=== PATIENT | female | born 1995 ===

== ENCOUNTER 2017-11-14 03:53 | Emergency (ER) | payer SELFPAY ==
[2017-11-14 03:55] VITALS: BP 145/99
[2017-11-14] MEDS ORDERED: DIPHTH/TETANUS/ACEL. PERTUSSIS IM ONLY ONE (03:55)
--- NOTE | 2017-11-14 03:58 | ER Report ---
History and Physical Time Seen By MD: 03:54 HPI/ROS CHIEF COMPLAINT: Snf clearance HISTORY OF PRESENT ILLNESS: 22-year-old female brought in by police for senior care clearance. She denies injury or medical problems. On visual examination, there is an abrasion to her central upper lip and a small superficial abrasion to her chin. Patient denies head injury or neck pain. Patient's last tetanus shots greater than 10 years. REVIEW OF SYSTEMS: Respiratory: No cough, no dyspnea. Cardiovascular: No chest pain, no palpitations. Gastrointestinal: No vomiting, no abdominal pain. Musculoskeletal: No back pain. Allergies: Coded Allergies: No Known Drug Allergies (Unverified , 11/14/17) Reviewed Nurses Notes: Yes Old Medical Records Reviewed: Yes Constitutional Vital Sign - Last 24 Hours 11/14/17 03:55 Temp 98.4 Pulse 99 Resp 20 B/P (MAP) 145/99 Pulse Ox 95 O2 Delivery Room Air Physical Exam General Appearance: The patient is alert, has no immediate need for airway protection and no current signs of toxicity.. Palpation of the head and neck reveal no tenderness or trauma HEENT: Pupils equal and round no injection. Ears normal, oropharynx without redness or exudate, no dental trauma noted. There is a small superficial abrasion to the central portion of the upper lip and there is a very faint subtle laceration to the chin Respiratory: Chest is non tender, lungs are clear to auscultation. Cardiac: regular rate and rhythm Gastrointestinal: Abdomen is soft and non tender, no masses, bowel sounds normal. Musculoskeletal: Neck: Neck is supple and non tender. Extremities have full range of motion and are non tender. No evidence of trauma Skin: No rashes or lesions. DIFFERENTIAL DIAGNOSIS: After history and physical exam differential diagnosis was considered for senior care clearance, alcohol intoxication, polysubstance abuse Medical Decision Making ED Course/Re-evaluation ED Course Patient was minute to an examination room. H&P was done. The differential diagnoses was considered. On conical examination. Patient voices no complaints. On examination, there are no findings except for a superficial lip abrasion on the upper lip and lower chin. Patient's tetanus status was updated. Patient was advised wound care. She is medically cleared for senior care admission. Decision to Disposition Date: Nov 14, 2017 Decision to Disposition Time: 03:56 Depart Departure Latest Vital Signs Vital Signs Date Time Temp Pulse Resp B/P (MAP) Pulse Ox O2 Delivery O2 Flow Rate FiO2 11/14/17 03:55 98.4 99 20 145/99 95 Room Air Impression: Primary Impression: Medical clearance for incarceration Additional Impressions: Alcohol intoxication Facial abrasion Condition: Improved Disposition: [facility] TO DETENTION/CORRECTIONAL F Patient Instructions: Acute Wound Care (ED), Alcohol Intoxication (ED) Problem Qualifiers Additional Impressions: Alcohol intoxication Complication of substance-induced condition: uncomplicated Qualified Codes: F10.920 - Alcohol use, unspecified with intoxication, uncomplicated Facial abrasion Encounter type: initial encounter Qualified Codes: S00.81XA - Abrasion of other part of head, initial encounter JOAQUÍN FERREIRA DO Nov 14, 2017 03:58
== END 2017-11-14 04:09 ==
LOC: ER 03:55
DX: F10.920 Alcohol use, unspecified with intoxication, uncomplicated (principal); S00.81XA Abrasion of other part of head, initial encounter
CPT/HCPCS: 90471; 90715; 99281